=== PATIENT | male | born 1995 | race Caucasian/White ===

== ENCOUNTER → 2018-11-23 11:09 | Outpatient (CLI) | payer BC, SELFPAY ==
--- NOTE | 2018-11-23 11:15 | XR_ITS ---
XR ankle LT min 3V HISTORY: Posttraumatic pain ITS.REASON: LT ANKLE INJURY ORDERING PHYSICIAN: Jude Fernandez MD PATIENT AGE: 23 years No comparison FINDINGS: No fracture or dislocation. No lytic or blastic change. There is normal mineralization.. The joint spaces are well-preserved. No significant degenerative/arthritic changes. No erosive changes evident. There is soft tissue swelling along the lateral malleoli region. IMPRESSION: Soft tissue swelling otherwise negative
== END ==
PROVIDERS: PCP Family Medicine; Visit Provider Family Medicine
DX: S99.912A Unspecified injury of left ankle, initial encounter (principal)
CPT/HCPCS: 73610

== ENCOUNTER → 2023-04-01 15:49 | Outpatient (CLI) | payer OTHER, SELFPAY ==
--- NOTE | 2023-04-01 15:56 | XR_ITS ---
FINAL REPORT CLINICAL HISTORY: FOOT INJURY pain, mostly on lateral side of foot FINDINGS: Left foot Three views were obtained. There is no acute fracture or dislocation. The joint spaces appear normal. No soft tissue abnormality is identified. IMPRESSION: No acute process. Reviewed, Interpreted and Dictated by Darren Banuelos III, MD Transcribed by Trudy Langford Authenticated and [facility]
== END ==
PROVIDERS: PCP Family Medicine; Visit Provider Family Medicine
DX: S99.922A Unspecified injury of left foot, initial encounter (principal); Y99.9 Unspecified external cause status
CPT/HCPCS: 73630

== ENCOUNTER 2023-05-30 11:00 | Outpatient (RCR) | payer OTHER, SELFPAY ==
--- NOTE | 2023-04-30 08:47 | HMH.OTOPEV ---
OT Inpatient Evaluation Rehab OT Outpatient Eval Start: 04/30/23 08:22 Freq: Status: Active Protocol: Document 04/30/23 08:22 TAVARES (Rec: 04/30/23 08:47 TAVARES [id number]) E-signed By Marietta Mcdaniels, OT Outpatient Therapy Subjective History Subjective History Pt is a 27 year old male who reports to therapy for initial evaluation to bilateral hands . Pt has been diagnosed with CTS bilaterally. Pt began experiencing symtpoms in January. His symptoms consist of numbness/tingling in thumb, index, and middle finger, decreased check and transfer beader strength, and overall weakness in wrists. 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 Pt has seen ortho ~2 weeks ago and received a steroid injection to right hand. At this time, the injection has not seemed to improve any symptoms. Pt is right hand dominant. Pt appears to be most affected in right hand. Pt is currently wearing braces at night. Pt demonstrates with normal AROM in bilateral wrists. However, pt's wrist strength and check and transfer beader strength are slightly limited in bilateral hands; more affected in right hand. Pt will continue to be seen twice a week to address deficits. R hand Qa Internship strength ST degrees R hand Qa Internship strength LT lbs New diagnosis of cancer in past 12 No months? Chief Complaint Pain,Paresthesia,Weakness, Decreased Qa Internship Strength Symptom Type Ache,Numbness,Tingling Symptoms Relieved By Nothing,Brace/Support Symptoms Aggravated By Physical Activity,Lifting Prior Functional Limitations None Current Functional Limitations Lifting,Housework,Dressing, Sleeping,Recreation Activity Symptom Description Intermittent,Activity Dependent Level of pain today (0-10) 2 Pain scale - at its best (0-10) 0 Pain scale - at its worst (0-10) 5 Wrist/Hand Eval Wrist Range of Motion Right Wrist Extension Active Range of Motion ( 75 degrees degrees) Wrist Flexion Active Range of Motion ( 90 degrees degrees) Wrist Radial Deviation Active Range of 30 degrees Motion (degrees) Wrist Ulnar Deviation Active Range of 30 degrees Motion (degrees) Left Wrist Extension Active Range of Motion ( 70 degrees degrees) Wrist Flexion Active Range of Motion ( 85 degrees degrees) Wrist Radial Deviation Active Range of 30 degrees Motion (degrees) Wrist Ulnar Deviation Active Range of 30 degrees Motion (degrees) Wrist Manual Muscle Testing Right Wrist Extension Strength Grade 4- Good- Wrist Flexion Strength Grade 4- Good- Wrist Radial Deviation Strength Grade 4- Good- Wrist Ulnar Deviation Strength Grade 4- Good- Left Wrist Extension Strength Grade 4 Good Wrist Flexion Strength Grade 4 Good Wrist Radial Deviation Strength Grade 4 Good Wrist Ulnar Deviation Strength Grade 4 Good Qa Internship/Pinch Strength Right Qa Internship Strength Measurement (lbs) 90 Left Qa Internship Strength Measurement (lbs) 140 Special Tests Wrist Tinel Test Positive Left,Positive Right QuickDASH Activities Please rate your ability to do the following activities in the last week by selecting the number below the appropriate response. 1. Open a tight or new jar. Moderate difficulty 2. Do heavy planer setup operator (e.g., wash No difficulty [place], floors). 3. Carry a shopping bag or briefcase. No difficulty 4. Wash your back. No difficulty 5. Use a knife to cut food. No difficulty 6. Recreational activities in which you Moderate difficulty take some force or impact through your arm, shoulder, or hand (e.g., golf, hammering, tennis, etc.). 7. During the past week, to what extent Not at all has your arm, shoulder or hand problem interfered with your normal social activities with family, friends, neighbors or groups? 8. During the past week, were you Slightly limited limited in your work or other regular daily activites as a result of your arm, shoulder or hand problem? 9. Arm, shoulder or hand pain. Mild 10. Tingling (pins and needles) in your Moderate arm, shoulder or hand. 11. During the past week, how much No difficulty difficulty have you had sleeping because of the pain in your arm, shoulder or hand? Quick DASH 19 Work Module (optional) The following questions ask about the impact of your arm, shoulder or hand problem on your ability to work (including homemaking if that is your main work role). 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 Yes 1. Using your usual technique for your Mild difficulty work? 2. Doing your usual work because of arm, Mild difficulty shoulder or hand pain? 3. Doing your work as well as you would Moderate difficulty like? 4. Spending your usual amount of time Moderate difficulty doing your work? Quick Dash Work Module Score 10 OT Outpatient Assessment Impairments Problems/Impairments Palpation Tenderness,Impaired Strength,Impaired Endurance, Impaired Lifting,Impaired Household Care,Impaired Recreational Activities, Impaired Work Activities, Subjective C/O Pain Prognosis Rehab Potential Good Clinical Impression Consistent with Diagnosis Yes Short Term Goals Number of Weeks 3 Increase Strength Yes: Right 4/5 Left: 5/5 Increase Endurance Yes: Pt will tolerate B/L wrist exercises for ~15 min prior to rest. Decrease Subjective C/O Pain Yes: 3/10 at worst Patient to be Ind w/ HEP Yes: AAROM stretches; yellow theraputty Improve Quick Dash Score Yes: 15 or below Custodial Goals Number of Weeks 6 Increase Strength Yes: Right: 5/5 Left: 5/5 Increase Endurance Yes: Pt will tolerate B/L wrist exercises for ~20 minutes prior to rest. Decrease Subjective C/O Pain Yes: 2/10 at worst Patient to be Ind w/ HEP Yes Patient to be Ind w/ Advanced HEP Yes: Advanced strengthening Improve Quick Dash Score Yes: 10 or below Outpatient Therapy Plan of Care Treatment Plan May Include Therapeutic Exercise Including Home Yes Exercise Program Manual Therapy Techniques Yes Neuromuscular Re-education Yes Therapeutic Activities to Return to Yes Previous Functional/Work Level ADL/Self Care Education Yes Thermal Modalities Yes Electrical Stimulation Yes Ultrasound/Phonophoresis Yes Iontophoresis Yes Parrafin Yes Orthotics/Bracing/Splinting Yes Massage Yes Eval/Re-Eval Yes Frequency Times per week 2 Duration Number of Weeks 6 Addendums This patient is a candidate for social No or vocational rehab? Patient/Guardian verbally acknowledges Yes understanding of treatment program and consents to further treatment? Patient/Guardian verbally acknowledges Yes understanding of diagnosis, prognosis and goals for treatment? Eval Complexity OT Charge 20579 - Moderate Complexity Shoulder/Elbow Eval Shoulder Objective Measurements Elbow Objective Measurements PHYSICIAN CERTIFICATION: I certify the specified therapy services for Jude Fernandez (Andrew) are required, authorized, and reviewed every 30 days.
--- NOTE | 2023-04-30 08:49 | HMH.OTOPEV ---
OT Inpatient Evaluation Rehab OT Outpatient Eval Start: 04/30/23 08:22 Freq: Status: Active Protocol: Document 04/30/23 08:22 TAVARES (Rec: 04/30/23 08:47 TAVARES [id number]) E-signed By Marietta Mcdaniels, OT Outpatient Therapy Subjective History Subjective History Pt is a 27 year old male who reports to therapy for initial evaluation to bilateral hands . Pt has been diagnosed with CTS bilaterally. Pt began experiencing symtpoms in January. His symptoms consist of numbness/tingling in thumb, index, and middle finger, decreased offshore wind turbine technician strength, and overall weakness in wrists. 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 Pt has seen ortho ~2 weeks ago and received a steroid injection to right hand. At this time, the injection has not seemed to improve any symptoms. Pt is right hand dominant. Pt appears to be most affected in right hand. Pt is currently wearing braces at night. Pt demonstrates with normal AROM in bilateral wrists. However, pt's wrist strength and offshore wind turbine technician strength are slightly limited in bilateral hands; more affected in right hand. Pt will continue to be seen twice a week to address deficits. R hand Sheetmetal Patternmaker strength ST degrees R hand Sheetmetal Patternmaker strength LT lbs New diagnosis of cancer in past 12 No months? Chief Complaint Pain,Paresthesia,Weakness, Decreased Sheetmetal Patternmaker Strength Symptom Type Ache,Numbness,Tingling Symptoms Relieved By Nothing,Brace/Support Symptoms Aggravated By Physical Activity,Lifting Prior Functional Limitations None Current Functional Limitations Lifting,Housework,Dressing, Sleeping,Recreation Activity Symptom Description Intermittent,Activity Dependent Level of pain today (0-10) 2 Pain scale - at its best (0-10) 0 Pain scale - at its worst (0-10) 5 Wrist/Hand Eval Wrist Range of Motion Right Wrist Extension Active Range of Motion ( 75 degrees degrees) Wrist Flexion Active Range of Motion ( 90 degrees degrees) Wrist Radial Deviation Active Range of 30 degrees Motion (degrees) Wrist Ulnar Deviation Active Range of 30 degrees Motion (degrees) Left Wrist Extension Active Range of Motion ( 70 degrees degrees) Wrist Flexion Active Range of Motion ( 85 degrees degrees) Wrist Radial Deviation Active Range of 30 degrees Motion (degrees) Wrist Ulnar Deviation Active Range of 30 degrees Motion (degrees) Wrist Manual Muscle Testing Right Wrist Extension Strength Grade 4- Good- Wrist Flexion Strength Grade 4- Good- Wrist Radial Deviation Strength Grade 4- Good- Wrist Ulnar Deviation Strength Grade 4- Good- Left Wrist Extension Strength Grade 4 Good Wrist Flexion Strength Grade 4 Good Wrist Radial Deviation Strength Grade 4 Good Wrist Ulnar Deviation Strength Grade 4 Good Sheetmetal Patternmaker/Pinch Strength Right Sheetmetal Patternmaker Strength Measurement (lbs) 90 Left Sheetmetal Patternmaker Strength Measurement (lbs) 140 Special Tests Wrist Tinel Test Positive Left,Positive Right QuickDASH Activities Please rate your ability to do the following activities in the last week by selecting the number below the appropriate response. 1. Open a tight or new jar. Moderate difficulty 2. Do heavy b operator (e.g., wash No difficulty [place], floors). 3. Carry a shopping bag or briefcase. No difficulty 4. Wash your back. No difficulty 5. Use a knife to cut food. No difficulty 6. Recreational activities in which you Moderate difficulty take some force or impact through your arm, shoulder, or hand (e.g., golf, hammering, tennis, etc.). 7. During the past week, to what extent Not at all has your arm, shoulder or hand problem interfered with your normal social activities with family, friends, neighbors or groups? 8. During the past week, were you Slightly limited limited in your work or other regular daily activites as a result of your arm, shoulder or hand problem? 9. Arm, shoulder or hand pain. Mild 10. Tingling (pins and needles) in your Moderate arm, shoulder or hand. 11. During the past week, how much No difficulty difficulty have you had sleeping because of the pain in your arm, shoulder or hand? Quick DASH 19 Work Module (optional) The following questions ask about the impact of your arm, shoulder or hand problem on your ability to work (including homemaking if that is your main work role). Please indicate what your job/work is: Long Term Do you work? Yes 1. Using your usual technique for your Mild difficulty work? 2. Doing your usual work because of arm, Mild difficulty shoulder or hand pain? 3. Doing your work as well as you would Moderate difficulty like? 4. Spending your usual amount of time Moderate difficulty doing your work? Quick Dash Work Module Score 10 OT Outpatient Assessment Impairments Problems/Impairments Palpation Tenderness,Impaired Strength,Impaired Endurance, Impaired Lifting,Impaired Household Care,Impaired Recreational Activities, Impaired Work Activities, Subjective C/O Pain Prognosis Rehab Potential Good Clinical Impression Consistent with Diagnosis Yes Short Term Goals Number of Weeks 3 Increase Strength Yes: Right 4/5 Left: 5/5 Increase Endurance Yes: Pt will tolerate B/L wrist exercises for ~15 min prior to rest. Decrease Subjective C/O Pain Yes: 3/10 at worst Patient to be Ind w/ HEP Yes: AAROM stretches; yellow theraputty Improve Quick Dash Score Yes: 15 or below Senior Living Goals Number of Weeks 6 Increase Strength Yes: Right: 5/5 Left: 5/5 Increase Endurance Yes: Pt will tolerate B/L wrist exercises for ~20 minutes prior to rest. Decrease Subjective C/O Pain Yes: 2/10 at worst Patient to be Ind w/ HEP Yes Patient to be Ind w/ Advanced HEP Yes: Advanced strengthening Improve Quick Dash Score Yes: 10 or below Outpatient Therapy Plan of Care Treatment Plan May Include Therapeutic Exercise Including Home Yes Exercise Program Manual Therapy Techniques Yes Neuromuscular Re-education Yes Therapeutic Activities to Return to Yes Previous Functional/Work Level ADL/Self Care Education Yes Thermal Modalities Yes Electrical Stimulation Yes Ultrasound/Phonophoresis Yes Iontophoresis Yes Parrafin Yes Orthotics/Bracing/Splinting Yes Massage Yes Eval/Re-Eval Yes Frequency Times per week 2 Duration Number of Weeks 6 Addendums This patient is a candidate for social No or vocational rehab? Patient/Guardian verbally acknowledges Yes understanding of treatment program and consents to further treatment? Patient/Guardian verbally acknowledges Yes understanding of diagnosis, prognosis and goals for treatment? Eval Complexity OT Charge 99214 - Moderate Complexity Shoulder/Elbow Eval Shoulder Objective Measurements Elbow Objective Measurements PHYSICIAN CERTIFICATION: I certify the specified therapy services for Jude Fernandez (Andrew) are required, authorized, and reviewed every 30 days.
== END 2023-05-30 12:00 | disposition home or self-care (01) ==
LOC: OT 11:00
PROVIDERS: Visit Provider Specialist
DX: G56.03 Carpal tunnel syndrome, bilateral upper limbs (principal)
CPT/HCPCS: 97010; 97014; 97035; 97110; 97140; 97166; G0283

== ENCOUNTER 2024-10-11 14:52 | Outpatient (RCR) | payer OTHER, SELFPAY ==
--- NOTE | 2024-10-11 15:54 | HMH.PTOPEV ---
PT Outpatient Evaluation Rehab PT Outpatient Evaluation Start: 10/11/24 15:40 Freq: Status: Active Protocol: Document 10/11/24 15:40 SHRUTI (Rec: 10/11/24 15:54 SHRUTI [id number]) E-signed By Leroy Rondon, PT Outpatient Therapy Subjective History Subjective History Pt is a 28 yom who is referred to [facility] outpatient PT with complaints of R knee and thigh pain. Pt reports that this pain began approximately 1 month ago. He reports that he is in the and is training for a particular unit that requires extensive running. Pt reports that his training consists of 25-30 miles of running/week varying from short speed runs to long runs. Pt reports that long runs seem to flare his knee up consistently after the 3-4 mile tammy. Pt reports that it will hurt for approximately 24 -48 hours and then go away on its own but can be quite debilitating in that time. Pt reports that he ices it some when it is hurting and has an e-stim unit which helps some. Pt reports that when it is flared up, his running form changes and he has difficulty going down steps and squatting . Occupation: PMH: None New diagnosis of cancer in past 12 No months? Chief Complaint Pain,Stiff Symptom Type Ache,Throb Symptoms Relieved By Ice,OTC Meds Current Functional Limitations Squatting,Recreation Activity, Stairs Symptom Description Intermittent,Activity Dependent Level of pain today (0-10) 0 Pain scale - at its best (0-10) 0 Pain scale - at its worst (0-10) 6 Hip/Knee Eval Gait Observation General Gait Pattern Observation No Deviations/Normal Palpation Tenderness right Knee Palpation Finding Tenderness Knee Palpation Overall Comment 2/4 TTP to IT band of R knee. Palpaple tautness of R IT band and HS MMT Hip Flexion Strength Grade 5 Normal Hip Abduction Strength Grade 5 Normal Hip Adduction Strength Grade 4- Good- Hip Extension Strength Grade 5 Normal Knee Extension Strength Grade 5 Normal Knee Flexion Strength Grade 5 Normal Special Tests Hip Bruna's Test Negative Right Hip Tommie Test Positive Right Hip Piriformis Test Positive Right Hip 90-90 Straight Leg Raise Test Negative Right Sciatic Nerve Tension Test Negative Right Hip Sitting Root Test Negative Right Hip Scouring (Quadrant) Test Negative Right Hip Trendelenburg Test Negative Right Knee Apprehension Test Negative Right Knee Apley Compression Test Negative Right Knee Valgus Stress Test Negative Right Knee Varus Stress Test Negative Right Miscellaneous Dx PT Eval Objective Objective LEFS: 73/80 Outpatient Therapy Assessment Impairments Problems/Impairmments Palpation Tenderness,Impaired Strength,Impaired Stair Climbing,Impaired Squatting, Impaired Recreational Activities,Impaired Running, Subjective C/O Pain Prognosis Rehab Potential Good Clinical Impression Consistent with Diagnosis Yes Consistent with IT Band Syndrome Additional details: Pt presents with signs and symptoms consistent with IT band syndrome. Pt demonstrates lateral thigh pain upon distance running, taut IT band and a positive tommie's test. 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 Plant Operator Goals Number of Weeks 8 Decreased Palpation Tenderness Yes: 0/ to TTP assessment above Increase Range of Motion Yes: - Tommie Test Increase Strength Yes: 5/5 to R hip adductors Improve Ability to Run Yes: 30 miles/week without increasing symptoms Improve LEFI Score Yes: 80 Decrease Subjective C/O Pain Yes: 2/10 with above activities Patient to be Ind w/ Advanced HEP Yes Outpatient Therapy Plan of Care Treatment Plan May Include Therapeutic Exercise Including Home Yes Exercise Program Manual Therapy Techniques Yes Neuromuscular Re-education Yes Therapeutic Activities to Return to Yes Previous Functional/Work Level Gait Training Yes ADL/Self Care Education Yes Dry Needling Yes Thermal Modalities Yes Electrical Stimulation Yes Massage Yes Manual Lymphatic Drainage Yes Eval/Re-Eval Yes Frequency Times per week 1 Duration Number of Weeks 8 Addendums This patient is a candidate for social No or vocational rehab? Patient/Guardian verbally acknowledges Yes understanding of treatment program and consents to further treatment? Patient/Guardian verbally acknowledges Yes understanding of diagnosis, prognosis and goals for treatment? Eval Complexity PT Charges 16859 - Low Complexity Shoulder/Elbow Eval Shoulder Objective Measurements Elbow Objective Measurements PHYSICIAN CERTIFICATION: I certify the specified therapy services for Jude Fernandez (Andrew) are required, authorized, and reviewed every 30 days.
== END 2024-10-11 23:59 | disposition home or self-care (01) ==
LOC: PT 14:52
PROVIDERS: Visit Provider Family Medicine
DX: M25.561 Pain in right knee (principal)
CPT/HCPCS: 97163